=== PATIENT | female | born 1990 | race Caucasian/White ===

== ENCOUNTER 2018-04-01 12:56 | Emergency (ER) | payer MEDICAID ==
[~2018-04-01] VITALS: Ht 170.2 cm; Wt 77.0 kg
[2018-04-01 13:01] VITALS: BP 130/90
[2018-04-01] MEDS ORDERED: diazepam 5mg tablet PO ONE (13:15)
[2018-04-01] MEDS ORDERED: DIAZ5TAB PO (13:19)
== END 2018-04-01 13:36 | disposition home or self-care (01) ==
LOC: ER 12:56
DX: F41.0 Panic disorder [episodic paroxysmal anxiety] (principal); F12.90 Cannabis use, unspecified, uncomplicated; Z76.0 Encounter for issue of repeat prescription
CPT/HCPCS: 99283

== ENCOUNTER 2019-10-05 14:51 | Emergency (ER) | payer MEDICAID ==
[~2019-10-05] VITALS: Ht 170.2 cm; Wt 90.9 kg
[~2019-10-05 14:51] MED LIST: DIAZ10TA4 PO; OXCA600T5 PO; PRAZ2CAP2 PO
[2019-10-05 14:58] VITALS: BP 112/92
[2019-10-05] MEDS ORDERED: GABA300C PO (16:14)
[2019-10-05] MEDS ORDERED: ALPRAZolam 0.25mg tablet PO ONE (16:15)
== END 2019-10-05 16:28 | disposition home or self-care (01) ==
LOC: ER 14:51
DX: F41.9 Anxiety disorder, unspecified (principal); F31.9 Bipolar disorder, unspecified; F12.90 Cannabis use, unspecified, uncomplicated; Z79.899 Other long term (current) drug therapy
CPT/HCPCS: 99283

== ENCOUNTER 2020-01-13 16:50 | Emergency (ER) | payer MEDICAID ==
[~2020-01-13] VITALS: Ht 170.2 cm; Wt 82.0 kg
[~2020-01-13 16:50] MED LIST changes: +GABA300C PO
[2020-01-13 17:07] VITALS: BP 127/92
--- NOTE | 2020-01-13 18:35 | NUR ---
PT LEFT "I DON'T WANT TO WAIT ANYMORE", OFFERED TO DO STREP TEST AND PT REFUSED
== END 2020-01-13 18:37 | disposition left against medical advice (07) ==
LOC: ER 16:51
DX: J02.9 Acute pharyngitis, unspecified (principal); M79.10 Myalgia, unspecified site; F41.9 Anxiety disorder, unspecified; F31.9 Bipolar disorder, unspecified; F12.90 Cannabis use, unspecified, uncomplicated; Z79.899 Other long term (current) drug therapy
CPT/HCPCS: 99281

== ENCOUNTER 2020-11-09 11:53 | Emergency (ER) | payer MEDICAID ==
[~2020-11-09] VITALS: Ht 170.2 cm; Wt 66.8 kg
[2020-11-09 13:33] LABS: BASOPHILS # (AUTO) 0.1 X10'3 (0-0.2); EOSINOPHILS # (AUTO) 0.1 X10'3 (0-0.9); EOSINOPHILS % (AUTO) 0.6 % (0-6); HEMATOCRIT 26.8 % (35.0-45.0); HEMOGLOBIN 8.3 g/dl (12.0-16.0); LYMPHOCYTES # (AUTO) 1.9 X10'3 (1.1-4.8); LYMPHOCYTES % (AUTO) 16.3 % (21-51); MEAN CORPUSCULAR HEMOGLOBIN 24.8 PG (27.0-31.0); MEAN CORPUSCULAR HGB CONC 31.1 g/dL (33.0-36.5); MEAN CORPUSCULAR VOLUME 79.7 FL (78-98); MEAN PLATELET VOLUME 7.5 FL (7.4-10.4); MONOCYTES # (AUTO) 0.9 X10'3 (0-0.9); MONOCYTES % (AUTO) 7.8 % (2-12); NEUTROPHILS # (AUTO) 8.8 X10'3 (1.8-7.7); NEUTROPHILS % (AUTO) 74.3 % (42-75); PLATELET COUNT 248 X10'3 (140-440); RED BLOOD COUNT 3.36 X10'6 (4.20-5.60); RED CELL DISTRIBUTION WIDTH 20.2 % (11.5-14.5); WHITE BLOOD COUNT 11.8 X10'3 (4.5-11.0)
[2020-11-09 13:50] LABS: ANISOCYTOSIS 3+; MICROCYTOSIS 1+; PLATELET ESTIMATE NORMAL
[2020-11-09 13:51] LABS: ELLIPTOCYTES FEW; HYPOCHROMASIA 2+
[2020-11-09 13:54] LABS: ALANINE AMINOTRANSFERASE 21 U/L (12-78); ALBUMIN 3.7 G/DL (3.4-5.0); ALBUMIN/GLOBULIN RATIO 1.1 (1.1-1.5); ALKALINE PHOSPHATASE 47 IU/L (46-116); ANION GAP 9 (8-16); ASPARTATE AMINO TRANSFERASE 12 U/L (10-37); BILIRUBIN,TOTAL 0.3 MG/DL (0.1-1.0); BLOOD UREA NITROGEN 12 MG/DL (7-18); BUN/CREATININE RATIO 13.3 (6.6-38.0); CALCIUM 8.5 MG/DL (8.5-10.1); CHLORIDE 107 MMOL/L (99-107); GLUCOSE 109 MG/DL (70-104); POTASSIUM 3.7 MMOL/L (3.5-5.1); SODIUM 141 MMOL/L (135-145); TOTAL CARBON DIOXIDE 25.2 MMOL/L (24-32); eGFR 74 ML/MIN
[2020-11-09] MEDS ORDERED: ketorolac tromethamine 15mg/ml inj. IM ONE (14:50)
[2020-11-09] MEDS ORDERED: oxyCODONE/APAP 5-325mg tablet PO ONE (14:50)
[2020-11-09] MEDS ORDERED: ketorolac tromethamine 15mg/ml inj. IV ONE (15:00)
[2020-11-09] MEDS ORDERED: ondansetron/PF 4mg/2ml inj IV ONE (15:15)
[2020-11-09 15:26] VITALS: BP 109/63
[2020-11-09] MEDS ORDERED: iohexol 300mg/ml 100ml inj. ONE (16:19)
== END 2020-11-09 17:45 | disposition home or self-care (01) ==
LOC: ER 11:53
DX: N83.201 Unspecified ovarian cyst, right side (principal); R10.2 Pelvic and perineal pain; G89.29 Other chronic pain; R42 Dizziness and giddiness; R11.2 Nausea with vomiting, unspecified; F41.9 Anxiety disorder, unspecified; F31.9 Bipolar disorder, unspecified; F12.90 Cannabis use, unspecified, uncomplicated; Z72.89 Other problems related to lifestyle; Z79.899 Other long term (current) drug therapy
CPT/HCPCS: 36415; 74177; 76856; 80053; 85008; 85025; 93976; 96374; 96375; 99285; J1885; J2405; Q9967

== ENCOUNTER 2021-02-17 06:24 | Day surgery (SDC) | payer MEDICAID ==
[2021-02-13 16:39] LABS: BASOPHILS # (AUTO) 0.1 X10'3 (0-0.2); BASOPHILS % (AUTO) 0.7 % (0-1); EOSINOPHILS % (AUTO) 0.3 % (0-6); LYMPHOCYTES # (AUTO) 2.4 X10'3 (1.1-4.8); LYMPHOCYTES % (AUTO) 22.9 % (21-51); MEAN CORPUSCULAR HEMOGLOBIN 26.2 PG (27.0-31.0); MEAN CORPUSCULAR HGB CONC 32.9 g/dL (33.0-36.5); MEAN CORPUSCULAR VOLUME 79.9 FL (78-98); MEAN PLATELET VOLUME 8.9 FL (7.4-10.4); MONOCYTES # (AUTO) 1.1 X10'3 (0-0.9); MONOCYTES % (AUTO) 10.1 % (2-12); PRE OP HEMATOCRIT 36.6 % (35.0-45.0); PRE OP PLATELET COUNT 277 X10'3 (140-440); RED BLOOD COUNT 4.59 X10'6 (4.20-5.60); RED CELL DISTRIBUTION WIDTH 18.5 % (11.5-14.5)
[2021-02-13 17:02] LABS: HCG SERUM QL NEGATIVE
[2021-02-13 17:38] LABS: HYPOCHROMASIA 1+; PLATELET ESTIMATE NORMAL
[2021-02-13 17:39] LABS: ANISOCYTOSIS 2+; MICROCYTOSIS 1+; SCHISTOCYTES FEW
[2021-02-17] VITALS (14 sets, daily range): BP systolic 109–125; BP diastolic 73–91
[~2021-02-17] VITALS: Ht 170.2 cm; Wt 71.5 kg
[~2021-02-17 06:24] MED LIST changes: -DIAZ10TA4 PO; -GABA300C PO; +NO HOME MEDS; -OXCA600T5 PO; -PRAZ2CAP2 PO; +famotidine 20mg tablet PO ONE; +ringers solution, lacted 1,000 ML IV SCH
[2021-02-17] MEDS ORDERED: midazolam 1 mg/ML 2ml injection ONE ×3 (08:49→10:19)
[2021-02-17] MEDS ORDERED: fentaNYL/PF 50MCG/1 ML 2ML syringe ONE ×2 (09:05→09:58)
[2021-02-17] MEDS ORDERED: acetaminophen 1,000mg/100ml IV 100 ML IV PRN (09:10)
[2021-02-17] MEDS ORDERED: morphine 2 MG/ML inj. syringe IV PRN (09:10)
[2021-02-17] MEDS ORDERED: morphine 4 MG/ML inj SYRINge IV PRN (09:10)
[2021-02-17] MEDS ORDERED: hydrALAZINE 20mg/ml inj. IV PRN (09:10)
[2021-02-17] MEDS ORDERED: proCHLORperazine 10 MG/2 ml inj IV PRN (09:10)
[2021-02-17] MEDS ORDERED: ketorolac trometh. 30mg/ml inj. IV ONE (09:10)
[2021-02-17] MEDS ORDERED: ringers solution, lacted 1,000 ML IV SCH (09:10)
[2021-02-17] MEDS ORDERED: labetalol 20mg/4ml (5mg/ml) syringe IV PRN (09:10)
[2021-02-17] MEDS ORDERED: ondansetron/PF 4mg/2ml inj IV PRN (09:10)
[2021-02-17] MEDS ORDERED: meperidine/PF 25mg/ml syringe IV PRN ×2 (09:10)
[2021-02-17] MEDS ORDERED: BUPIVAcaine/PF 2.5mg/ml (0.25%) 10ml vial ONE (09:14)
[2021-02-17] MEDS ORDERED: sevoflurane 250ml liquid IH ONE (09:21)
[2021-02-17] MEDS ORDERED: rocuronium 10mg/ml inj IV ONE (09:21)
[2021-02-17] MEDS ORDERED: glycopyrrolate 0.2mg/ml inj ONE (09:21)
[2021-02-17] MEDS ORDERED: neostigmine methylsulfate 1 MG/ML 10ml vial ONE (09:21)
[2021-02-17] MEDS ORDERED: LIDOcaine 2% (20mg/ml) 5ml vial ONE (09:37)
[2021-02-17] MEDS ORDERED: propofol inj 20 ML IV ONE (09:37)
[2021-02-17] MEDS ORDERED: LIDOcaine 2% 5ml jelly ONE (09:37)
[2021-02-17] MEDS ORDERED: dexamethasone sod phosphate 4mg/ml inj. ONE (09:56)
[2021-02-17] MEDS ORDERED: ondansetron/PF 4mg/2ml inj ONE (09:56)
--- NOTE | 2021-02-17 10:22 | NUR ---
Received from OR via , accompanied by Anesthesiologist DR WISDOM and report given by Anesthesiolgist. PT PRESENTS WITH 20G LEFT HAND, MES PANTIES WITH PAD, VSS. Addendum: 02/17/21 at 1036 by Ethel Burgos RN, RN Amended: Links added.
[2021-02-17] MEDS: meperidine/PF 25mg/ml syringe IV PRN ×2 (10:36→10:56)
[2021-02-17] MEDS ORDERED: ONDA4TAB6 PO (11:40)
[2021-02-17] MEDS ORDERED: oxyCODONE/APAP 5-325mg tablet PO ONE (11:40)
[2021-02-17] MEDS ORDERED: oxyCODONE/APAP 5-325mg tablet PO PRN (11:40)
--- NOTE | 2021-02-17 12:22 | NUR ---
DISCHARGE CRITERIA MET, DISCHARGE INSTRUCTIONS GIVEN, DEMONSTRATES VERBAL UNDERSTANDING. DISCHARGED HOME IN GOOD CONDITION. Addendum: 02/17/21 at 1230 by Ethel Burgos RN, RN Amended: Links added.
== END 2021-02-17 12:22 | disposition home or self-care (01) ==
LOC: PAS 06:24
PROVIDERS: ATTEND Obstetrics & Gynecology
DX: Z30.2 Encounter for sterilization (principal); N92.0 Excessive and frequent menstruation with regular cycle; N83.8 Other noninflammatory disorders of ovary, fallopian tube and broad ligament; G43.909 Migraine, unspecified, not intractable, without status migrainosus; F32.9 Major depressive disorder, single episode, unspecified; F41.9 Anxiety disorder, unspecified; Z20.822 Contact with and (suspected) exposure to COVID-19; Z79.899 Other long term (current) drug therapy
CPT/HCPCS: 36415; 58563; 58670; 82948; 84703; 85025; J1100; J2175; J2250; J2405; J2704; J2710; J3010; J3490; J7030; J7120; U0003; U0005; Z7506; Z7508; Z7512; 85008; A4355; A4618; A4649; A6250; A6258